=== PATIENT | female | born 1970 | race Asian ===

== ENCOUNTER 2023-02-10 14:51 | Emergency (ER) | payer BC, SELFPAY ==
[2023-02-10] VITALS (16 sets, daily range): BP systolic 110–157; BP diastolic 60–97; PULSE 92–123; RESP 12–23; O2SAT 93–99
--- NOTE | 2023-02-10 15:04 | ED.ALLEREA ---
HPI - Allergic Reaction General Chief complaint: Allergic Reaction Stated complaint: itchy Time Seen by Provider: 02/10/23 15:04 Source: patient, family (fiance) and other (friend) Limitations: no limitations History of Present Illness HPI narrative: This is a 52 year old who presents with concern for an allergic reaction. She had a vegan meatball in the buffet at [employer] and shortly thereafter developed a swollen face and flushed red skin. Denies any difficulty breathing or feeling like her throat was swelling. She was nauseated. Denies vomiting, or diarrhea but she did have a bowel movement between episode and arrival. She felt red and flushed and took 50mg Benadryl before presenting. This has never happened before; not allergic to anything. Had never had this food item before. Friend who presents with her states the facial swelling is improving from before. Related Data Allergies Allergy/AdvReac Type Severity Reaction Status Date / Time No Known Allergies Allergy Unverified 07/01/12 20:01 [facility] Family History Family History (Updated 12/02/13 @ 07:13 by DOCTOR UNKNOWN) Mother Hypertension Father Family history of lung cancer Patient's father is Social History Social History Smoking status: Never smoker Alcohol intake: never Occupation/Education: occupation Additional occupation/education comments: nurse Exam Const: General: healthy appearing and alert; No diaphoretic Nutritional Appearance: well nourished Orientation/consciousness: patient oriented x3 Limitations: no limitations HENMT: Mouth: Yes Normal oral and palatal mucosa present Other: swelling throughout bilateral face and lips; periorbital swelling/edema but able to open eyes Neck: Neck: normal visual inspection Chest: Other: redness across chest w/o urticaria; flat, not raised; no distinct lesions Resp: Effort & Inspection: not labored, no retractions, tachypneic and no use of accessory muscles Auscultation: clear to auscultation bilaterally, no crackles, no wheezes and lung sounds not diminished Other: moving appropraite air; not tripoding; no increased secretions Cardio: Rate: tachycardic GI: GI Palp: Yes Soft to palpation, No Tenderness to palpation present (GI), No Guarding due to palpation present (GI) and No Rigid due to palpation Skin: Other: bilateral upper extremities hyperemic but without raised urticaria Neuro: General: patient oriented x3, moves all extremities and no focal motor deficits Speech: normal speech Other: no dysphonia Psych: Mental Status: mental status grossly normal Affect: normal affect, No Sad affect present and No Anxious affect present Attitude: cooperative Course Vital Signs Vital signs: Vital Signs Pulse Rate 123 H 02/10/23 14:57 Respiratory Rate 23 H 02/10/23 14:57 Blood Pressure 157/97 H 02/10/23 14:57 Pulse Oximetry 96 02/10/23 14:57 Oxygen Delivery Room Air 02/10/23 14:57 Pulse Rate 92 02/10/23 17:01 Respiratory Rate 15 02/10/23 17:01 Blood Pressure 122/66 02/10/23 17:01 Pulse Oximetry 97 02/10/23 17:01 Oxygen Delivery Room Air 02/10/23 14:57 MDM - Allergic Reaction MDM Narrative Medical decision making narrative: Patient presents after developing bilateral upper extremity redness/swelling and facial swelling/redness after eating a vagan meatball. Has not occurred previously. Given concern upon initial arrival for anaphylaxis, pateint was administered epinephrine prior to my examination. I attribute her initial tachycardia to this as well as perhaps heightened emotion surrounding the episode. SHe had taken Benadryl prior to arrival. On examination her airway is intact and she has facial swelling and a non-discreete hyperemia across bilateral upper extremities in addition to some mild tachypnea. No watery eyes, rhinorrhea, sneezing, throat
[2023-02-10] MEDS: methylPREDNISolone SOD SUCC 40 MG VIAL IV PUSH (15:41)
[2023-02-10] MEDS: FAMOTIDINE 20 MG TABLET PO (15:41)
== END 2023-02-10 17:06 | disposition home or self-care (01) ==
PROVIDERS: Emergency Provider Student in an Organized Health Care Education/Training Program
DX: T78.1XXA Other adverse food reactions, not elsewhere classified, initial encounter (principal); R22.0 Localized swelling, mass and lump, head; R22.33 Localized swelling, mass and lump, upper limb, bilateral
CPT/HCPCS: 96374; 99284; A9270; J2920